=== PATIENT | female | born 1955 ===

== ENCOUNTER 2023-05-08 09:56 | Day surgery (SDC) | payer MEDICARE, BC ==
[2023-05-08] MEDS ORDERED: Dexamethasone 4 MG/ML SDV IV ONE (09:57)
[2023-05-08] MEDS ORDERED: Midazolam 1 MG/ML 2 ML SDV IV ONE (09:57)
[2023-05-08] MEDS ORDERED: Phenylephrine 10% Ophth Soln 5 ML Bot EYELF PRN (10:00)
[2023-05-08] MEDS ORDERED: Timolol Maleate 0.5% Ophth Soln 5 ML Bottle EYELF ONE (10:00)
[2023-05-08] MEDS ORDERED: Povidone-Iodine 5% Sterile Ophth Soln 30 ML Bottle EYELF ONE ×2 (10:00→10:53)
[2023-05-08] MEDS ORDERED: Moxifloxacin 0.5% Ophth Soln 3 ML Bottle EYELF ONE (10:00)
[2023-05-08] MEDS ORDERED: Cataract Ophth Solution EYELF ONE (10:00)
[2023-05-08] MEDS ORDERED: Sodium Chloride 0.9% 10 ML Syringe FLUSH PRN (10:00)
[2023-05-08] MEDS ORDERED: Proparacaine 0.5% Ophth Soln 15 ML Bottle EYELF ONE (10:00)
[2023-05-08] MEDS ORDERED: Tropicamide 1% Ophth Soln 15 ML Bottle EYELF ONE (10:00)
[2023-05-08] MEDS ORDERED: Ondansetron 4 MG/2 ML SDV IVPUSH PRN (10:00)
[2023-05-08] MEDS ORDERED: Acetaminophen 325 MG Tab PO PRN (10:15)
[2023-05-08] MEDS ORDERED: Acetaminophen/Codeine 300-30 MG Tab PO PRN (10:15)
[2023-05-08] MEDS ORDERED: Lidocaine 1% 30 ML SDV ONE (10:51)
[2023-05-08] MEDS ORDERED: Diclofenac Sodium 0.1% Ophth Soln 5 ML Bottle EYELF ONE (10:52)
[2023-05-08] MEDS ORDERED: Brimonidine 0.2% Ophth Soln 5 ML Bottle EYELF ONE (10:52)
[2023-05-08] MEDS ORDERED: Tobramycin 0.3% Ophth Oint 3.5 GM Tube EYELF ONE (10:52)
[2023-05-08] MEDS ORDERED: Tetracaine HCl/PF 0.5% 4 ML Bottle EYELF ONE (10:52)
[2023-05-08] MEDS ORDERED: Vancomycin 500 MG SDV EYELF ONE (10:52)
[2023-05-08] MEDS ORDERED: Balanced Salt Solution Ophth Irrig 500 ML Bottle IOCULAR ONE (10:53)
[2023-05-08] MEDS ORDERED: Chondroitin Sulfate/Hyaluronate Sodium Ophth Inj 0.75 ML Syringe EYELF ONE (10:53)
== END 2023-05-08 11:24 | disposition home or self-care (01) ==
LOC: DL.SDS 09:56
PROVIDERS: ATTEND Ophthalmology
DX: H25.812 Combined forms of age-related cataract, left eye (principal); F32.A Depression, unspecified; R73.03 Prediabetes; K21.9 Gastro-esophageal reflux disease without esophagitis; Z98.890 Other specified postprocedural states; Z79.899 Other long term (current) drug therapy; Z88.8 Allergy status to other drugs, medicaments and biological substances; Z88.5 Allergy status to narcotic agent; Z88.2 Allergy status to sulfonamides
CPT/HCPCS: 00142; 66984; A9270; J3370; V2632; J1100; J2250; J3490

== ENCOUNTER 2023-05-22 09:10 | Day surgery (SDC) | payer MEDICARE, BC ==
[~2023-05-22 09:10] MED LIST: Cataract Ophth Solution EYERT ONE
[2023-05-22] MEDS ORDERED: Povidone-Iodine 5% Sterile Ophth Soln 30 ML Bottle EYERT ONE ×2 (09:15→10:15)
[2023-05-22] MEDS ORDERED: Phenylephrine 10% Ophth Soln 5 ML Bot EYERT PRN (09:15)
[2023-05-22] MEDS ORDERED: Acetaminophen 325 MG Tab PO PRN (09:15)
[2023-05-22] MEDS ORDERED: Ondansetron 4 MG/2 ML SDV IVPUSH PRN (09:15)
[2023-05-22] MEDS ORDERED: Moxifloxacin 0.5% Ophth Soln 3 ML Bottle EYERT ONE (09:15)
[2023-05-22] MEDS ORDERED: Timolol Maleate 0.5% Ophth Soln 5 ML Bottle EYERT ONE (09:15)
[2023-05-22] MEDS ORDERED: Acetaminophen/Codeine 300-30 MG Tab PO PRN (09:15)
[2023-05-22] MEDS ORDERED: Tropicamide 1% Ophth Soln 15 ML Bottle EYERT ONE (09:15)
[2023-05-22] MEDS ORDERED: Sodium Chloride 0.9% 10 ML Syringe FLUSH PRN (09:15)
[2023-05-22] MEDS ORDERED: Proparacaine 0.5% Ophth Soln 15 ML Bottle EYERT ONE ×2 (09:15→10:16)
[2023-05-22] MEDS ORDERED: Vancomycin 500 MG SDV EYERT ONE (10:12)
[2023-05-22] MEDS ORDERED: Balanced Salt Solution Ophth Irrig 500 ML Bottle IOCULAR ONE (10:12)
[2023-05-22] MEDS ORDERED: Apraclonidine 0.5% Ophth Soln 5 ML Bot EYERT ONE (10:14)
[2023-05-22] MEDS ORDERED: Tobramycin 0.3% Ophth Oint 3.5 GM Tube EYERT ONE (10:14)
[2023-05-22] MEDS ORDERED: Lidocaine 1% 30 ML SDV ONE (10:15)
== END 2023-05-22 11:05 | disposition home or self-care (01) ==
LOC: DL.SDS 09:10
PROVIDERS: ATTEND Ophthalmology
DX: H25.811 Combined forms of age-related cataract, right eye (principal); F32.A Depression, unspecified; M79.7 Fibromyalgia; K21.9 Gastro-esophageal reflux disease without esophagitis; G47.00 Insomnia, unspecified; G25.81 Restless legs syndrome; Z79.1 Long term (current) use of non-steroidal anti-inflammatories (NSAID); Z79.899 Other long term (current) drug therapy; Z86.19 Personal history of other infectious and parasitic diseases
CPT/HCPCS: 00142; A9270-GY; J3370; J3490